=== PATIENT | male | born 1990 | race Caucasian/White ===

== ENCOUNTER 2019-03-16 12:56 | Emergency (ER) | payer OTHER ==
[~2019-03-16] VITALS: Ht 190.5 cm; Wt 111.1 kg
[2019-03-16 13:30] LABS: ABSOLUTE EOSINOPHILS 0.2 thou/uL (0.0-0.7); ABSOLUTE LYMPHOCYTES 1.6 thou/uL (0.8-5.3); ABSOLUTE MONOCYTES 0.4 thou/uL (0.0-1.2); ABSOLUTE NEUTROPHILS 4.4 thou/uL (1.6-8.1); BASOPHILS 0.6 %; EOSINOPHILS 3.2 %; HEMATOCRIT 46.6 % (42.0-52.0); MCH 30.5 pg (26.0-34.0); MCHC 34.4 g/dL (28.0-37.0); MCV 88.8 fL (80.0-100.0); MONOCYTES 5.9 %; MPV 8.7 fl. (7.2-11.1); NUCLEATED RBCS 0 /100WBC; PLATELET COUNT* 245 thou/uL (150-400); POLYS 66.3 %; RBC 5.24 mil/uL (4.50-6.00); RDW-CV 12.7 % (10.5-14.5); WBC 6.6 thou/uL (4.0-11.0)
[2019-03-16 13:34] LABS: CALCIUM 9.9 mg/dL (8.5-10.1); CREATININE 1.1 mg/dL (0.6-1.3); POTASSIUM 3.6 mmol/L (3.5-5.1)
[2019-03-16 13:39] LABS: ALBUMIN 4.2 g/dL (3.4-5.0); TOTAL BILIRUBIN 0.5 mg/dL (<0.1-1.0)
[2019-03-16] MEDS ORDERED: PHENERGAN 25 MG25 M1 PO (14:10)
[2019-03-16 14:18] VITALS: BP 129/78
[2019-03-16 14:49] LABS: ESR (SEDRATE) 2 mm/hr (0-15)
== END 2019-03-16 14:22 | disposition home or self-care (01) ==
LOC: M.ERS 12:56
PROVIDERS: Nurse Practitioner Family
DX: G43.909 Migraine, unspecified, not intractable, without status migrainosus (principal); R11.2 Nausea with vomiting, unspecified